=== PATIENT | female | born 1995 | race African-American/Black ===

== ENCOUNTER 2017-06-15 09:40 | Inpatient (IN) | payer OTHER ==
[~2017-06-15] VITALS: Ht 157.5 cm; Wt 90.7 kg
[2017-06-15 10:06] VITALS: BP 123/68; PULSE 76; RESP 18; TEMP 98.2; O2SAT 98
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
[2017-06-15] MEDS ORDERED: ABIL2TAB2 PO (10:30)
[2017-06-15] MEDS ORDERED: ZOLO25TA PO (10:30)
[2017-06-15] MEDS ORDERED: METF500T PO ×2 (10:30→17:25)
[2017-06-15 10:55] LABS: AUTOMATED NEUTROPHIL # 2.7 TH/MM3 (1.8-7.7); BASOPHIL % 0.8 % (0.0-2.0); EOSINOPHIL % 0.8 % (0.0-4.0); HEMATOCRIT 39.1 % (35.0-46.0); HEMOGLOBIN 13.5 GM/DL (11.6-15.3); LYMPH % 41.8 % (9.0-44.0); LYMPHOCYTE # 2.3 TH/MM3 (1.0-4.8); MEAN CELL VOLUME 91.9 FL (80.0-100.0); MEAN CORPUSCULAR HEMOGLOBIN 31.7 PG (27.0-34.0); MEAN CORPUSCULAR HGB CONC 34.5 % (32.0-36.0); MEAN PLATELET VOLUME 8.4 FL (7.0-11.0); MONOCYTE # 0.4 TH/MM3 (0-0.9); NEUT % 49.6 % (16.0-70.0); PLATELET COUNT 222 TH/MM3 (150-450); RED BLOOD COUNT 4.26 MIL/MM3 (4.00-5.30); RED CELL DISTRIBUTION WIDTH 12.6 % (11.6-17.2); WHITE BLOOD COUNT 5.4 TH/MM3 (4.0-11.0)
[2017-06-15 11:10] LABS: ALBUMIN 3.6 GM/DL (3.4-5.0); AST (GOT) 21 U/L (16-38); BICARBONATE 25.8 MEQ/L (21.0-32.0); BLOOD UREA NITROGEN 8 MG/DL (7-18); CALCIUM 9.2 MG/DL (8.5-10.1); CHLORIDE 107 MEQ/L (98-107); CREATININE 0.82 MG/DL (0.50-1.00); GLOMERULAR FILTRATION RATE 109 ML/MIN (>89); GLUCOSE,RANDOM 79 MG/DL (74-106); SODIUM (NA) 141 MEQ/L (136-145)
[2017-06-15 11:13] LABS: ALKALINE PHOSPHATASE 61 U/L (45-117); ALT (GPT) 18 U/L (9-42); TOTAL BILIRUBIN ADULT 0.2 MG/DL (0.2-1.0); TOTAL PROTEIN 7.6 GM/DL (6.4-8.2)
[2017-06-15 11:18] LABS: BILIRUBIN, URINE NEG (NEG); BLOOD, URINE NEG (NEG); GLUCOSE,URINE NEG (NEG); KETONE, URINE NEG (NEG); NITRITE,URINE NEG (NEG); SQUAMOUS EPITHELIAL CELL URINE <1 /hpf (0-5); URINE COLOR YELLOW (YELLW/STRAW); URINE LEUKOCYTE ESTERASE NEG (NEG)
[2017-06-15 11:23] LABS: ACETAMINOPHEN LESS THAN 2.0 MCG/ML (10.0-30.0)
--- NOTE | 2017-06-15 14:49 | PD ---
History of Present Illness Chief Complaint: Depression Time Seen by Provider: 14:30 Travel History International Travel<30 Days: No Contact w/Intl Traveler<30days: No Known affected area: No Legal Status Legal Status: [place] Act History of Present Illness: 21-year-old female who presents under a [place] act for suicidal ideation. Patient describes multiyear history of depression. She reports suicidal ideation today with plan to stab herself with a pencil. This occurred as a result of an argument with one of her skilled nursing residents. At this time, she is denying any suicidal or homicidal ideation, plan or intent. She denies any psychotic symptoms. Her cognition appears to be clear and baseline. She is not showing evidence of intoxication from alcohol or other substances. She is verbally lenka for safety and she is wanting to go home. PFSH Past Medical History Depression: Yes Diabetes: Yes Patient Takes Glucophage: Yes Diminished Hearing: No Immunizations Current: Yes Influenza Vaccination: No ?: Not LMP: LAST MONTH Past Surgical History Surgical History: No Previous Surgery Psychiatric History Psychiatric History Hx Psychiatric Treatment: Patient reports she has not been hospitalized at this facility for psychiatric purposes. She has been treated for depression on an outpatient basis but does not remember the name of her antidepressant medicine. She has felt suicidal in the past but she states she has not attempted to commit suicide previously. History of Inpatient Treatment: No Guns or firearms in home: No Social History Hx Alcohol Use: No Hx Tobacco Use: No Hx Substance Use: No Allergies-Medications (Allergen,Severity, Reaction): Coded Allergies: No Known Allergies (Unverified , 06/15/17) Reported Meds & Prescriptions Reported Meds & Active Scripts Active Reported Metformin (Metformin HCl) 500 Mg Tab Unknown Dose PO DAILY With a meal Abilify (Aripiprazole) 2 Mg Tab Unknown Dose PO DAILY Zoloft (Sertraline HCl) 25 Mg Tab Unknown Dose PO DAILY Review of Systems Except as stated in HPI: all other systems reviewed are Neg Mental Status Examination Appearance: Appropriate Consciousness: Alert Orientation: x4 Motor Activity: Normal gait Speech: Unremarkable Language: Adequate Fund of Knowledge: Adequate Attention and Concentration: Adequate Memory: Unremarkable Mood: Sad Affect: Sad Thought Process & Associations: Intact Thought Content: Appropriate Hallucination Type: None Delusion Type: None Suicidal Ideation: No Suicidal Plan: No Suicidal Intention: No Homicidal Ideation: No Homicidal Plan: No Homicidal Intention: No Insight: Adequate Judgment: Adequate MDM Medical Decision Making Medical Record Reviewed: Yes Assessment/Plan Patient interviewed at bedside. Medical record reviewed. Case discussed with nurse Hinojosa. Nurse Hinojosa is calling the skilled nursing for further information regarding the patient. Until we have such information, disposition planning is incomplete. Patient however wants to return home and is verbally lenka for safety. Orders Orders Complete Blood Count With Diff (06/15/17 10:20) Comprehensive Metabolic Panel (06/15/17 10:20) Urinalysis - C+S If Indicated (06/15/17 10:20) Ed Urine Pregnancytest Poc (06/15/17 10:20) Psych Screen (06/15/17 10:20) Drug Screen, Random Urine (06/15/17 10:20) Alcohol (Ethanol) (06/15/17 10:20) Salicylates (Aspirin) (06/15/17 10:20) Tylenol (Acetaminophen) (06/15/17 10:20) Diet Regular Basic (06/15/17 Lunch) Results Vital Signs Date Time Temp Pulse Resp B/P (MAP) Pulse Ox O2 Delivery O2 Flow Rate FiO2 06/15/17 10:06 98.2 76 18 123/68 (86) 98 Laboratory Tests Test 06/15/17 10:25 White Blood Count 5.4 Red Blood Count 4.26 Hemoglobin 13.5 Hematocrit 39.1 Mean Corpuscular Volume 91.9 Mean Corpuscular Hemoglobin 31.7 Mean Corpuscular Hemoglobin Concent 34.5 Red Cell Distribution Width 12.6 Platelet Count 222 Mean Platelet Volume 8.4 Neutrophils (%) (Auto) 49.6 Lymphocytes (%) (Auto) 41.8 Monocytes (%) (Auto) 7.0 Eosinophils (%) (Auto) 0.8 Basophils (%) (Auto) 0.8 Neutrophils # (Auto) 2.7 Lymphocytes # (Auto) 2.3 Monocytes # (Auto) 0.4 Eosinophils # (Auto) 0.0 Basophils # (Auto) 0.0 CBC Comment DIFF FINAL Differential Comment Urine Color YELLOW Urine Turbidity CLEAR Urine pH 6.0 Urine Specific [place] 1.014 Urine Protein NEG Urine Glucose (UA) NEG Urine Ketones NEG Urine Occult Blood NEG Urine Nitrite NEG Urine Bilirubin NEG Urine Urobilinogen LESS THAN 2.0 Urine Leukocyte Esterase NEG Urine RBC LESS THAN 1 Urine WBC LESS THAN 1 Urine Squamous Epithelial Cells <1 Microscopic Urinalysis Comment CULT NOT INDICATED Blood Urea Nitrogen 8 Creatinine 0.82 Random Glucose 79 Total Protein 7.6 Albumin 3.6 Calcium Level 9.2 Alkaline Phosphatase 61 Aspartate Amino Transf (AST/SGOT) 21 Alanine Aminotransferase (ALT/SGPT) 18 Total Bilirubin 0.2 Sodium Level 141 Potassium Level 4.3 Chloride Level 107 Carbon Dioxide Level 25.8 Anion Gap 8 Estimat Glomerular Filtration Rate 109 Salicylates Level LESS THAN 1.7 Urine Opiates Screen NEG Acetaminophen Level LESS THAN 2.0 Urine Barbiturates Screen NEG Urine Amphetamines Screen NEG Urine Benzodiazepines Screen NEG Urine Cocaine Screen NEG Urine Cannabinoids Screen NEG Ethyl Alcohol Level 8 Diagnosis Primary Impression: Adjustment disorder with depressed mood Condition: Stable Triston Sethi MD Jun 15, 2017 14:49
[2017-06-15] MEDS ORDERED: SERT-129 PO (17:22)
[2017-06-15] MEDS ORDERED: TRAZ100T6 PO (17:23)
[2017-06-15] MEDS ORDERED: ARIP1TAB7 PO (17:24)
[2017-06-15] MEDS ORDERED: THERTAB PO (17:26)
[2017-06-15] MEDS ORDERED: CETI-1 PO (17:27)
[2017-06-15] MEDS ORDERED: SENN8.8L PO (17:28)
[2017-06-15] MEDS ORDERED: [UNRECOGNIZED DRUG - CODE] PO (17:37)
[2017-06-15] MEDS ORDERED: FLUT1SPR5 EACH NARE (17:38)
[2017-06-15] MEDS ORDERED: TYLE325T PO (17:41)
[2017-06-15] MEDS ORDERED: CHLO.12%30 SWISH-SPIT (17:41)
[2017-06-15 17:55] VITALS: BP 116/70; PULSE 76; RESP 18; TEMP 98.3; O2SAT 99
[2017-06-16 06:46] VITALS: BP 102/78; PULSE 85; RESP 16; TEMP 97.9; O2SAT 99
[2017-06-16] MEDS ORDERED: metFORMIN HCL 500 MG TAB PO ONE (08:15)
[2017-06-16] MEDS ORDERED: LORazepam 0.5 MG TAB PO PRN (13:30)
[2017-06-16] MEDS ORDERED: LORazepam 1 MG TAB PO PRN (13:30)
[2017-06-16] MEDS ORDERED: MAGNESIUM HYDROXIDE SUSP 30 ML CUP PO PRN (13:30)
[2017-06-16] MEDS ORDERED: ACETAMINOPHEN 325 MG TAB PO PRN (13:30)
[2017-06-16] MEDS ORDERED: ALUMINUM/MAGNESIUM/SIMETH 30 ML CUP PO PRN (13:30)
[2017-06-16] MEDS ORDERED: LORazepam 2 MG/ML VIAL IM PRN ×2 (13:30)
[2017-06-16 16:46] VITALS: BP 131/66; PULSE 80; RESP 16; TEMP 97.4; O2SAT 100
[2017-06-16] MEDS: metFORMIN HCL 500 MG TAB PO SCH (17:49)
[2017-06-16 18:18] VITALS: BP 123/76; PULSE 87; RESP 18; TEMP 98.1; O2SAT 98
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
[2017-06-16] MEDS: FLUTICASONE PROPIONATE 50 MCG/ACT 16 GM NASAL SPRAY NASAL SCH (21:00)
[2017-06-16] MEDS ORDERED: NON-FORMULARY DRUG (Trazodone 100 MG) PO SCH (21:00)
[2017-06-16] MEDS ORDERED: NON-FORMULARY DRUG (Fluticasone Nasal Spray (Flonase Nasal Spray) 50 MCG) EACH NARE SCH (21:00)
[2017-06-16] MEDS: traZODone HCL 100 MG TAB PO SCH (21:25)
[2017-06-17 06:00] VITALS: BP 109/63; PULSE 75; RESP 17; TEMP 98.1; O2SAT 97
[2017-06-17] MEDS: NICOTINE 21 MG/24 HR PATCH T-DERMAL SCH (08:27)
[2017-06-17] MEDS: REMOVE OLD PATCH T-DERMAL SCH (08:27)
[2017-06-17] MEDS: MULTIVITAMINS/MINERALS THERAPEUTIC TAB PO SCH (08:28)
[2017-06-17] MEDS: metFORMIN HCL 500 MG TAB PO SCH ×2 (08:28→17:22)
[2017-06-17] MEDS ORDERED: MULTIVIT TX WITH IRON MINERALS PO SCH (09:00)
[2017-06-17] MEDS ORDERED: INFLUENZA VIRUS VACCINE (QUADRIVALENT) 0.5 ML SYR IM ONE (10:00)
--- NOTE | 2017-06-17 12:11 | EKG ---
Date Performed: 06/17/2017 Time Performed: 10:08:45 PTAGE: 21 years EKG: Sinus rhythm NORMAL ECG NO PREVIOUS TRACING DOCTOR: Leon Esteban Interpretating Date/Time 06/17/2017 12:10:29
--- NOTE | 2017-06-17 12:11 | EKG ---
Date Performed: 06/17/2017 Time Performed: 10:08:45 PTAGE: 21 years EKG: Sinus rhythm NORMAL ECG NO PREVIOUS TRACING DOCTOR: Leon Esteban Interpretating Date/Time 06/17/2017 12:10:29
--- NOTE | 2017-06-17 12:11 | EKG ---
Date Performed: 06/17/2017 Time Performed: 10:08:45 PTAGE: 21 years EKG: Sinus rhythm NORMAL ECG NO PREVIOUS TRACING DOCTOR: Leon Esteban Interpretating Date/Time 06/17/2017 12:10:29
[2017-06-17 13:20] LABS: BICARBONATE 28.3 MEQ/L (21.0-32.0); BLOOD UREA NITROGEN 8 MG/DL (7-18); CALCIUM 9.6 MG/DL (8.5-10.1); CHOLESTEROL 218 MG/DL (120-200); GLOMERULAR FILTRATION RATE 98 ML/MIN (>89); GLUCOSE,RANDOM 118 MG/DL (74-106); TRIGLYCERIDES 78 MG/DL (42-150)
[2017-06-17 13:36] LABS: HEMOGLOBIN A1C 5.4 % (4.3-6.0)
[2017-06-17 13:40] LABS: CHLORIDE 102 MEQ/L (98-107); CHOLESTEROL/ HDL RATIO 1.85 RATIO; HDL CHOLESTEROL 117.7 MG/DL (40.0-60.0); LDL CHOLESTEROL 85 MG/DL (0-99); SODIUM (NA) 139 MEQ/L (136-145)
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
--- NOTE | 2017-06-17 16:26 | PD.CONS ---
HPI Service [facility] Hospitalists Consult Requested By Dr. Alvarado Reason for Consult Medical management Primary Care Physician Eve Augustin MD Diagnoses: History of Present Illness 21 Y/O female admitted to the psychiatric unit for adjustment disorder with depressed mood and suicidal ideation. Hospitalist service consulted for medical management. Patient has a reported history of type two diabetes and has been managed by her PCP Dr. Augustin. She denies any increased thirst or urination. States she is feeling well except for her psych issues. Hospitalist was consulted also regarding a rash on the left arm. Patient reports she was scratching the area because she was stressed but it is almost healed. Review of Systems Constitutional: COMPLAINS OF: Fever, DENIES: Chills Endocrine: DENIES: Polydipsia Genitourinary: DENIES: Urinary frequency Integumentary: COMPLAINS OF: Rash Psychiatric: DENIES: Suicidal Ideation Except as stated in HPI: all other systems reviewed are Neg Past Family Social History Allergies: Coded Allergies: No Known Allergies (Unverified , 06/15/17) Past Medical History Type 2 diabetes Past Surgical History None Reported Medications Reported Meds & Active Scripts Active Reported Tylenol (Acetaminophen) 325 Mg Tab 325 Mg PO ONCE Chlorhexidine Gluconate (Mouth) Liq (Chlorhexidine Gluconate) 0.12% Soln 15 Ml SWISH-SPIT BID Flonase Nasal [place] (Fluticasone Nasal [place]) 50 Mcg/Act [place] 50 Mcg EACH NARE HS Fwvobx-Xuepdt-Dg 1-0.02(24)-75 (Norethindrone-E.estradiol-Iron) 1 Mg-20 Mcg (24) /75 Mg (4) Tab.chew 1 Tab PO DAILY Senexon Liq (Sennosides) 8.8 Mg/5 Ml Liq 8.8 Mg PO HS PRN Zyrtec (Cetirizine HCl) 10 Mg Tablet 1 Tab PO DAILY Thera-M (Multivit,Tx with Iron,Minerals) 1 Each Tablet 1 Tab PO DAILY Metformin (Metformin HCl) 500 Mg Tab 500 Mg PO BIDPC Abilify (Aripiprazole) 20 Mg Tab 20 Mg PO DAILY Trazodone (Trazodone HCl) 100 Mg Tablet 100 Mg PO HS Sertraline (Sertraline HCl) 100 Mg Tab 200 Mg PO DAILY Family History Patient does not know Social History she denies tobacco, alcohol or drug use but I note her tox screen was positive for alcohol. Physical Exam Vital Signs Vital Signs Date Time Temp Pulse Resp B/P (MAP) Pulse Ox O2 Delivery O2 Flow Rate FiO2 06/17/17 06:00 98.1 75 17 109/63 (78) 97 06/16/17 18:18 98.1 87 18 123/76 (92) 98 06/16/17 16:46 97.4 80 16 131/66 (87) 100 Physical Exam GENERAL: Obese in no apparent distress. SKIN: Right antecubital area with superficial excoriation, healing. HEAD: Atraumatic. Normocephalic. No temporal or scalp tenderness. EYES: Pupils equal round and reactive. Extraocular motions intact. No scleral icterus. No injection or drainage. ENT: Nose without bleeding, purulent drainage or septal hematoma. Throat without erythema, tonsillar hypertrophy or exudate. Uvula midline. Airway patent. NECK: Trachea midline. No JVD or lymphadenopathy. Supple, nontender, no meningeal signs. CARDIOVASCULAR: Regular rate and rhythm without murmurs, gallops, or rubs. RESPIRATORY: Clear to auscultation. Breath sounds equal bilaterally. No wheezes , rales, or rhonchi. GASTROINTESTINAL: Abdomen soft, non-tender, nondistended. No hepato-splenomegaly , or palpable masses. No guarding. MUSCULOSKELETAL: Extremities without clubbing, cyanosis, or edema. No joint tenderness, effusion, or edema noted. No calf tenderness. Negative Homans sign bilaterally. NEUROLOGICAL: Awake and alert. Cranial nerves II through XII intact. Motor and sensory grossly within normal limits. Five out of 5 muscle strength in all muscle groups. Normal speech. Laboratory Laboratory Tests Test 06/17/17 12:00 Blood Urea Nitrogen 8 Creatinine 0.90 Random Glucose 118 Calcium Level 9.6 Sodium Level 139 Potassium Level 4.1 Chloride Level 102 Carbon Dioxide Level 28.3 Anion Gap 9 Estimat Glomerular Filtration Rate 98 Hemoglobin A1c 5.4 Triglycerides Level 78 Cholesterol Level 218 LDL Cholesterol 85 HDL Cholesterol 117.7 Cholesterol/HDL Ratio 1.85 Thyroid Stimulating Hormone 3rd Gen 1.380 Result Diagram: 06/15/17 1025 06/17/17 1200 Assessment and Plan Problem List: (1) Diabetes ICD Code: E11.9 - Type 2 diabetes mellitus without complications Plan: Continue Metformin. Patient can follow up outpatient with her PCP (2) Rash ICD Code: R21 - Rash and other nonspecific skin eruption Plan: Healing. No treatment indicated. Advised patient to not scratch the area. (3) Adjustment disorder with depressed mood ICD Code: F43.21 - Adjustment disorder with depressed mood Status: Acute Plan: Management per psych Assessment and Plan Patient is medically stable. Will sign off. Sumi Clements MD Jun 17, 2017 16:25
[2017-06-17 17:26] VITALS: BP 122/63; PULSE 89; RESP 17; TEMP 97.7; O2SAT 97
[2017-06-17] MEDS: traZODone HCL 100 MG TAB PO SCH (21:17)
[2017-06-17] MEDS: FLUTICASONE PROPIONATE 50 MCG/ACT 16 GM NASAL SPRAY NASAL SCH (21:18)
[2017-06-18 06:15] VITALS: BP 100/56; PULSE 69; RESP 16; TEMP 97.5; O2SAT 97
[2017-06-18] MEDS: MULTIVITAMINS/MINERALS THERAPEUTIC TAB PO SCH (08:41)
[2017-06-18] MEDS: metFORMIN HCL 500 MG TAB PO SCH ×2 (08:42→17:01)
[2017-06-18] MEDS: REMOVE OLD PATCH T-DERMAL SCH (08:42)
[2017-06-18] MEDS: NICOTINE 21 MG/24 HR PATCH T-DERMAL SCH (08:43)
[2017-06-18] MEDS ORDERED: ARIP1TAB14 PO (10:39)
[2017-06-18] MEDS ORDERED: THERM PO (10:39)
[2017-06-18] MEDS ORDERED: FLUT50SP NASAL (10:39)
[2017-06-18] MEDS ORDERED: METF500 PO (10:39)
[2017-06-18] MEDS ORDERED: TRAZ100T6 PO (10:39)
--- NOTE | 2017-06-18 15:06 | HHI.DS ---
Psychiatry Discharge Summary Inpatient Psychiatric care?: Yes Advance Directive: No Reason Not Provided: Due to Patient Condition Mental Health AdvanceDirective: No Health Care Proxy: No Admission Admission Date Jun 16, 2017 at 13:22 Admission Diagnosis: (1) Adjustment disorder with depressed mood ICD Code: F43.21 - Adjustment disorder with depressed mood Brief History Patient is a 21 y/o woman, single , unemployed, living in skilled nursing, father recently in December 2016, with PPH of depression, three prior psychiatric admissions, multiple prior suicide attempts, history of cutting, who was brought in by skilled nursing staff due to recent suicidal ideations. Patient was seen in the ED, sitting on hospital bed, calm and cooperative with interview. Patient states that she recently was bullied at school and being told "I hope you , go kill yourself". She states becoming upset and feeling wanting to hurt herself. She states feeling sad all the time, more depressed recently with decreased sleep, energy, no change in appetite or concentration, decrease pleasure in hobbies, and SI more since 20 y/o and worsening in the past week which she was thinking about tying something around her neck or using a knife. Currently she states feeling "good" denies SI, HI, occasional AH of brother's voice, last time being last night telling her "positive things". Tobacco Use In Past 30 Days: No Tobacco Past 30 Days Alcohol Use: Never Hospital Course Patient is a 21 y/o woman, single , unemployed, living in skilled nursing, father recently in December 2016, with PPH of depression, three prior psychiatric admissions, multiple prior suicide attempts, history of cutting, who was brought in by skilled nursing staff due to recent suicidal ideations in the context of recent bullying. Patient was admitted to the inpatient psychiatry unit where she was continued on aripiprazole 20mg PO daily, trazodone 100mg PO HS which she tolerated well. Patient noted to have improved mood, denied any perceptual disturbances nor suicidal or homicidal ideations since admission. She continued to report improved mood, feeling hopeful, future oriented with plans on continuing her studies at school and reports feeling support by her skilled nursing director and staff at her school. Upon discharge patient reported planning on continuing school and relying on support from the school when bullying occurs. Upon discharge, patient reports feeling well, denies any suicidal ideations and states wanting to live for her family and for herself. Patient stated feeling motivated to continue treatment as well as outpatient follow up appointments for continuity of care. Patient denies SI, HI, AVH or delusions. Supportive psychotherapy provided. Patient advised to return to ED or call 911 in case of emergency. Patient agrees with plan. Results Blood Pressure 100 / 56 Vital Signs Date Time Temp Pulse Resp B/P (MAP) Pulse Ox O2 Delivery O2 Flow Rate FiO2 06/18/17 06:15 97.5 69 16 100/56 (71) 97 06/15/17 17:55 Room Air Laboratory Tests Test 06/17/17 12:00 Random Glucose 118 MG/DL (74-106) Cholesterol Level 218 MG/DL (120-200) HDL Cholesterol 117.7 MG/DL (40.0-60.0) Laboratory Results Test 06/17/17 12:00 Cholesterol Level 218 MG/DL (120-200) HDL Cholesterol 117.7 MG/DL (40.0-60.0) Hemoglobin A1c 5.4 % (4.3-6.0) LDL Cholesterol 85 MG/DL (0-99) Triglycerides Level 78 MG/DL (42-150) Summary of Procedures None Pending results at discharge: No Medications # of Antipsychotic meds at D/C: 1 Approp Antipsych med options 1 - Minimum of three failed multiple trials of monotherapy. 2 - Documented plan to taper to monotherapy due to previous use of multiple meds OR cross-taper in progress at D/C. 3 - Documentation of augmentation of Clozapine. 4 - Justification other than those listed in allowable values 1-3, document here : Discharge Discharge Date: Jun 18, 2017 Discharge Diagnosis: (1) Adjustment disorder with depressed mood ICD Code: F43.21 - Adjustment disorder with depressed mood Status: Acute Pt Condition on Discharge: Stable Discharge Disposition: [facility] Discharge Instructions Diet Instructions: As Tolerated, No Restrictions Activities you can perform: Regular-No Restrictions Scheduled Appointment: [facility]. Discharge Time > 30 minutes Mental Status Examination Appearance: Appropriate Consciousness: Alert Orientation: x4 Motor Activity: Normal gait Speech: Unremarkable Language: Adequate Fund of Knowledge: Adequate Attention and Concentration: Adequate Memory: Unremarkable Mood: Appropriate Affect: Appropriate Thought Process & Associations: Intact Thought Content: Appropriate Hallucination Type: None Delusion Type: None Suicidal Ideation: No Suicidal Plan: No Suicidal Intention: No Homicidal Ideation: No Homicidal Plan: No Homicidal Intention: No Insight: Adequate Judgment: Adequate Discharge/Advance Care Plan Health Problems: (1) Adjustment disorder with depressed mood Goals to promote your health * To prevent worsening of your condition and complications * To maintain your health at the optimal level Directions to meet your goals Take your medications as prescribed Follow your dietary instruction Follow activity as directed Keep your appointments as scheduled Take your immunizations and boosters as scheduled If your symptoms worsen call your PCP, if no PCP go to Urgent Care Center or Emergency Room For 05/03 questions related to your inpatient stay or results of tests pending at discharge, please contact Dr. Akash Alvarado at Smoking is Dangerous to Your Health. Avoid second hand smoking Akash Alvarado MD Jun 18, 2017 15:06
== END 2017-06-18 18:00 | DRG 881 ==
LOC: NEPD 09:40 → NEDA 06-16 13:22 → H260 06-16 15:40
PROVIDERS: ADMIT Student in an Organized Health Care Education/Training Program; ATTEND Student in an Organized Health Care Education/Training Program
DX: F43.21 Adjustment disorder with depressed mood (principal); R45.851 Suicidal ideations; R44.0 Auditory hallucinations; E11.9 Type 2 diabetes mellitus without complications; R21 Rash and other nonspecific skin eruption; Z23 Encounter for immunization; Z62.810 Personal history of physical and sexual abuse in childhood; Z79.84 Long term (current) use of oral hypoglycemic drugs; Z91.5 Personal history of self-harm
CPT/HCPCS: 80048; 80053; 80061; 80307; 81001; 83036; 84443; 84703; 85025; 90686; 93005; Q2038